=== PATIENT | female | born 1975 | race Hispanic/Latino ===

== ENCOUNTER 2021-09-09 07:48 | Emergency (ER) | payer SELFPAY ==
[2021-09-09 07:57] VITALS: BP 146/111
[2021-09-09] MEDS ORDERED: traMADol 50 MG TAB PO ONE (08:03)
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
--- NOTE | 2021-09-09 08:35 | XRay Report ---
Left knee 4 views INDICATION: Knee pain FINDINGS: Alignment appears normal. No acute fracture dislocation. Small joint effusion. IMPRESSION: Small joint effusion. Signer Name: Lenard Eddy MD Signed: 09/09/2021 8:31 AM Workstation Name: [id number]
== END 2021-09-09 10:30 | disposition home or self-care (01) ==
LOC: ED 07:48
DX: S86.912A Strain of unspecified muscle(s) and tendon(s) at lower leg level, left leg, initial encounter (principal); Y04.0XXA Assault by unarmed brawl or fight, initial encounter; Y93.89 Activity, other specified; Y92.89 Other specified places as the place of occurrence of the external cause; Y99.8 Other external cause status
CPT/HCPCS: 99283